=== PATIENT | male | born 1985 | race Caucasian/White ===

== ENCOUNTER 2023-07-24 20:30 | Emergency (ER) | payer OTHER, SELFPAY ==
[2023-07-24 20:39] VITALS: BP 168/106
[2023-07-24] MEDS: ADACEL 0.5 ML IM (22:28)
[2023-07-24] MEDS: VIBRAMYCIN 100 MG PO (22:29)
--- NOTE | 2023-07-24 23:45 | ED.MUSCINJ ---
HPI-Injury
General
Chief Complaint: Musculo-Skeletal Complaint
Source: patient
Exam Limitations: none
Time Seen by Provider: 07/24/23 21:46
Nursing documentation reviewed up to this point in time: agreed with
Travel History
Have you had any contact with someone who has COVID-19?: No
Do you have any symptoms of coronavirus? Fever > 100 degrees, chills, cough, shortness of breath, sore throat, loss of taste or smell, muscle aches, or headache?: No
History of Present Illness-Injury
Is this injury a work related problem?: No
Is pt an associate of [facility]?: No
Initial Injury comments:
Patient states he was attempting to sit in stands to watch ej sporting event. States his shoulder hit a fire extinguisher that was on wall. Extinguisher fell onto his right hand. Sustained a crush injury to his right third finger. Incident
occurred tonight Brought self to ED for eval.
Past History
Past History
ED Past Medical History: None
ED Past Surgical History: None
Review of Systems
Review of Systems
Allergies reviewed?: Yes
All Other Systems: ROS reviewed and negative except as documented in HPI and ROS
Constitutional: Reports no symptoms
Musculoskeletal: Reports joint pain (Pain to right third finger)
Skin: Reports other (Laceration to right dorsal distal 3rd finger)
Neurological: Reports no symptoms
Psychiatric: Reports no symptoms
Musculoskeletal Injury Exam
Musculoskeletal Injury Exam
Right Third Finger:
Pain with Movement?: Moderate
Tender to palpation?: Moderate
Soft tissue swelling?: Moderate
External deformity and angulation?: None
Joint effusion?: None
Contusion?: Moderate
Hematoma-local bleeding into tissue?: Moderate
Strain- Sprain- Tear (Connective tissue injury)?: None
Crepitus with movement?: No
Joint instability?: No
Malalignment/deformity?: No
Range of motion: Full
Distal skin color and temperature: normal-warm & good color
Capillary Refill: normal
Normal distal neurovascular exam?: Yes
Peripheral Pulses: radial (right): 3+
Skin Exam
Laceration
Right Distal Dorsal Third Finger:
Length in cm: 1.5
Orientation: diagonal
Type of Laceration: simple
Any active bleeding?: no active bleeding
Distal skin color and temperature: normal-warm & good color
Normal distal neurovascular exam: Yes
Range of motion: full
Phy Exam
General Physical Exam
General Presentation: well appearing and no apparent distress
General age: appears stated age
General Skin: warm and dry
General Habitus: normal
General Mental: alert
General Hydration: appears well hydrated
Musculoskeletal Exam
Musculoskeletal Exam: full ROM and neuro vasc intact
Skin Exam
Skin Exam: normal color, warm/dry and no rash
Psychiatric Exam
Psychiatric Exam: normal mood/affect
Injury Course
Orders/Labs/Results
Orders:
Orders
07/24/23 21:51
Finger(s)/Thumb 2 View Rt [CR Finger(s)/thumb Min 2 Vw Rt] Urgent
Comment:
Reason For Exam: trauma
07/24/23 22:20
Tetanus/Diphth/Acelpertussis [Adacel] 0.5 ml IM .ONCE ONE
07/24/23 22:21
Doxycycline [Vibramycin] 100 mg PO NOW STA
Procedures
Laceration Closure
Right Distal Dorsal Third Finger:
Description of Wound Edges: sharp
Preparation: cleaned with saline and cleaned with Betadine
Anesthesia: 1% Lidocaine and Digital-Regional
Revision/Debridement: routine- no revision
Wound exploration: explored to base- no FB
Type of Closure: single layer closure
Skin Closure Material: 5-0 prolene (4) and 5-0 chromic gut (4)
*Radiology
Radiology exam reviewed: radiology read reviewed
*Pulse Oximetry
Patient hypoxic: no
*Critical Care Note
Total Time (30-74mins, 75-104mins- exclusive of procedures): Not Applicable
ED Attending Note
-
Portions of this chart may have been created with voice recognition software.� Occasional wrong word or��sound alike� substitutions may have occurred due to the inherent limitations of voice recognition software.
Discharge Plan
Departure
Patient Disposition: Home (Routine Discharge)
Date of Disposition: 07/24/23
Time of Disposition: 22:37
Patient with high blood pressure during this ER visit?: No
Condition: Good
Covid-19: Not Applicable
Discharge Problem:
Finger fracture, Finger laceration
Instructions: Laceration Repair With Glue (DC), Laceration Repair With Stitches (DC), Finger Fracture (DC), Ibuprofen, Using Cold for Pain
Prescriptions:
New
doxycycline hyclate 100 mg capsule
100 mg PO BID Qty: 14 0RF
Referrals:
Julio Marie, [Family Provider] - Follow up in 1 week (Sutures can be removed in 7-10 days)
Interventions
Interventions:
*Risk Screen - Suicide Last Done: 07/24/23 20:39
*General Assessment Last Done: 07/24/23 20:39
*Neglect/Abuse Screening Last Done: 07/24/23 20:39
ED- Fall Risk Assessment Last Done: 07/24/23 20:39
*ED COVID-19 Vaccine History Last Done: 07/24/23 20:39
*Nursing Disposition Last Done: 07/24/23 22:02
ED-Musculoskeletal Assessment Last Done: 07/24/23 22:02
Discharge Date and Time
Discharge Date/Time: 07/24/23 22:52
== END 2023-07-24 22:52 | disposition home or self-care (01) ==
LOC: EMR 20:30
PROVIDERS: EMERGENCY PHYSICIAN Emergency Medicine; FAMILY PHYSICIAN Family Medicine
DX: S62.632B Displaced fracture of distal phalanx of right middle finger, initial encounter for open fracture (principal); W23.0XXA Caught, crushed, jammed, or pinched between moving objects, initial encounter; Z23 Encounter for immunization
CPT/HCPCS: 99284; 12041; 90471; 73140; 90715

== ENCOUNTER 2024-11-25 23:02 | Emergency (ER) | payer OTHER, SELFPAY ==
[2024-11-25 23:15] VITALS: BP 154/92
[2024-11-25 23:38] VITALS: BP 158/88
[2024-11-25 23:43] VITALS: BMI 31.3
[2024-11-25 23:55] LABS: % Basophils 0.9 % (0-2); % Eosinophils 2.9 % (0-6); % Immature Granulocytes 0.6 % (0-0.5); % Lymphocytes 28.2 % (20.5-51.1); % Monocytes 8.7 % (1.7-9.3); % Neutrophils 58.7 % (42.2-75.2); Absolute Basophils 0.1 10^3/uL (0-0.2); Absolute Eosinophils 0.2 10^3/uL (0-0.7); Absolute Lymphocytes 1.9 10^3/uL (1.2-3.4); Absolute Monocytes 0.6 10^3/uL (0.1-0.6); Hematocrit 46.3 % (39.0-52.0); Hemoglobin 16.1 g/dL (13.0-18.0); Mean Corp Hgb Conc. 34.8 g/dL (33.0-37.0); Mean Corpuscular Hgb 29.3 pg (27.0-31.0); Mean Corpuscular Volume 84.2 fL (80.0-94.0); Mean Platelet Volume 9.6 fL (7.4-10.4); Nucleated Red Blood Cells % 0 % (-); Platelet Count 205 10^3/uL (130-400); Red Cell Dist. Width 13.1 % (11.5-14.5); White Blood Cell Count 6.8 10^3/uL (4.8-10.8)
[2024-11-26] VITALS: BP 147/78
[2024-11-26 00:08] LABS: ALT (SGPT) 19 U/L (0-50); AST (SGOT) 28 U/L (17-59); Alkaline Phosphatase 61 U/L (38-126); Blood Urea Nitrogen 17 mg/dl (9-20); Calcium 9.4 mg/dl (8.4-10.2); Carbon Dioxide 23 mmol/L (22-30); Chloride 109 mmol/L (98-107); Estimated Creatinine Clearance 75 ml/min; Glucose 107 mg/dl (70-99); Sodium 139 mmol/L (135-145); Total Bilirubin 0.5 mg/dl (0.2-1.3); Total Protein 6.6 g/dl (6.3-8.2); eGFR 59.98
[2024-11-26 00:20] LABS: NT-proBNP < 20.0 pg/ml; Troponin I < 0.012 ng/ml
--- NOTE | 2024-11-26 00:57 | ED.GENMED ---
History of Present Illness
General
Chief Complaint: Chest Pain
Source: patient
Exam Limitations: none
Time Seen by Provider: 11/25/24 23:40
Nursing documentation reviewed up to this point in time: agreed with
History of Present Illness
History of Present Illness:
Patient is a 39-year-old male who presents to the ER for evaluation of chest pain. Patient reports intermittently for the past 2 days he has had' twinges of sharp almost electrical sensations to his left chest.' Today however what prompted him to
come to the ER is he had an episode of left jaw soreness/discomfort when he was chewing. He denies any actual pain. He denies any pain to the jaw pain of the chest. He is concerned because his father had heart attack and at age 69.
He is very active and exercises. He exercises with no chest pain or shortness of breath. He denies any recent injury cough fever chills. He denies any associated shortness of breath with his current symptoms. He does workout daily and worked out
heavily today with out any symptoms. denies any injury.
No pain with deep breath.
Past History
Past History
ED Past Medical History: None
ED Past Surgical History: None
Review of Systems
Review of Systems
Allergies reviewed?: Yes
All Other Systems: ROS reviewed and negative except as documented in HPI and ROS
Constitutional: Reports no symptoms
Respiratory: Reports no symptoms; Denies trouble breathing
Cardiac: Reports chest pain
ABD/GI: Reports no symptoms
: Reports no symptoms
Musculoskeletal: Reports no symptoms
Skin: Reports no symptoms
Neurological: Reports no symptoms
Psychiatric: Reports no symptoms
Phy Exam
General Physical Exam
General Presentation: no apparent distress
General age: appears stated age
General Skin: warm and dry
General Habitus: normal
General Mental: alert
General Hydration: appears well hydrated
Eye Exam
Eye Exam: PERRL and EOMI
Eye Exam General: PERRL: bilateral and EOM intact: bilateral
Pupil Exam: Bilateral: round and reactive
Cardiovascular Exam
Cardiovascular Exam: regular rate/rhythm, no murmur and normal peripheral pulses
Pulmonary Exam
Pulmonary Exam: lungs clear, no respiratory distress, chest non tender and other (no rash,)
Neurological Exam
Neurological Exam: alert and oriented x3
Musculoskeletal Exam
Musculoskeletal Exam: full ROM
Skin Exam
Skin Exam: normal color and warm/dry
Psychiatric Exam
Psychiatric Exam: normal mood/affect
Scores
Heart Score for Chest Pain Patients
STEMI patient?: Not applicable
Course
Orders/Labs/Results
Orders:
Orders
11/25/24 23:11
Electrocardiogram (*1) Urgent
Reason for Study: Other
Other Reason for Exam: Respiratory Distress
Cardiac Monitoring- Treatment ONCE
EKG- Treatment ONCE
IV Insert/Care/Rem.- Treatment PRN
O2 Therapy [RESP] Urgent
Titrate/Wean O2 to maintain O2 sat greater than (%): 93
Special Instructions: TO MAINTAIN CONTINUOUS O2 SATS >/= 93%
Pulse Ox/cont/shift [RESP] Urgent
Quantity: 1
Special Instructions: continuous pulse ox
11/25/24 23:48
Complete Blood Count/With Diff Urgent
Comprehensive Metabolic Panel Urgent
NT-proBNP Urgent
Troponin I Urgent
11/26/24 00:00
CR Chest - 2 Views Urgent
Reason For Exam: respiratory distress
11/26/24 01:07
EKG- Treatment ONCE
11/26/24 02:26
Troponin I Urgent
11/26/24 02:30
Electrocardiogram (*1) Stat
Reason for Study: Other
Other Reason for Exam: chest pain
Abnormal Lab Results
11/25/24
23:48
Immature Gran % 0.6 H %
(0-0.5)
Chloride 109 H mmol/L
(98-107)
Creatinine 1.5 H mg/dL
(0.7-1.3)
Glucose 107 H mg/dl
(70-99)
11/25/24 23:48
11/25/24 23:48
Vital Signs
Initial and Last Documented VS:
Initial Vital Signs
Temp Pulse BP Pulse Ox
98.0 F 95 154/92 98
11/25/24 23:15 11/25/24 23:15 11/25/24 23:15 11/25/24 23:15
Last Documented Vital Signs
Temp Pulse Resp BP Pulse Ox
98.0 F 90 18 147/78 98
11/25/24 23:15 11/26/24 00:00 11/26/24 00:00 11/26/24 00:00 11/26/24 00:00
MDM/Problems Addressed
Differential Diagnosis Includes:
Not limited to muscular pain, less likely ACS.
MDM/Problems Addressed:
As documented patient is a 39-year-old male who has had intermittent chest pain for the past couple days and had some discomfort chewing today. His father had from cardiovascular disease which is what prompted patient to come to the ER.
He presents awake alert no acute distress he exercises and lift weights daily and has no associated chest pain or shortness of breath with exercise. He presents awake alert no acute distress no obvious injury he is nontachycardic not hypoxic.
Patient was monitored here and remained asymptomatic with 2 negative cardiac troponins. Because of patient's family history I did however suggest that he follow-up with cardiology and placed on the hotline and to hold off on exercise or exertion
until seen by cardiology. He is well-appearing. Stable for discharge home
*Radiology
Radiology exam reviewed: radiology read reviewed
*Pulse Oximetry
Patient hypoxic: no
*EKG
Interpreted by ED Provider?: Yes
Heart Rate: 85
Rate: normal
Rhythm: sinus
Ischemia: no ischemia
*Critical Care Note
Total Time (30-74mins, 75-104mins- exclusive of procedures): Not Applicable
ED Attending Note
-
Portions of this chart may have been created with voice recognition software.� Occasional wrong word or��sound alike� substitutions may have occurred due to the inherent limitations of voice recognition software.
Discharge Plan
Departure
Patient Disposition: Home (Routine Discharge)
Date of Disposition: 11/26/24
Time of Disposition: 03:11
Patient with high blood pressure during this ER visit?: Yes
Condition: Fair
Covid-19: Not Applicable
Discharge Problem:
Chest pain
Instructions: Chest Pain CBC Follow Up, BLOOD PRESSURE
Prescriptions:
No Action
doxycycline hyclate 100 mg capsule
100 mg PO BID Qty: 14 0RF
Referrals:
Stone Doty MD [Active, Cardiology]
Julio Marie DO [Family Provider, Family Practice]
Activity Restrictions/Additional Instructions:
As discussed follow-up with cardiology. You were placed on the cardiology hotline which means you should receive a phone call in the next 1 to 2 days however if you do not please call the cardiology office to schedule an appointment as soon as
possible. No exercise or exertional activities until cleared by cardiology. Return if any worsening of symptoms.
Interventions
Interventions:
*Risk Screen - Suicide Last Done: 11/25/24 23:31
*General Assessment Last Done: 11/25/24 23:31
*Neglect/Abuse Screening Last Done: 11/25/24 23:31
*ED- Fall Risk Assessment Last Done: 11/25/24 23:31
*ED COVID-19 Vaccine History Last Done: 11/25/24 23:31
*Nursing Disposition Last Done: 11/26/24 03:15
ED- Cardiac Assessment Last Done: 11/25/24 23:53
Discharge Date and Time
Discharge Date/Time: 11/26/24 03:18
Print Language: NEPALI
[2024-11-26 03:10] LABS: Troponin I < 0.012 ng/ml
== END 2024-11-26 03:18 | disposition home or self-care (01) ==
LOC: EMR 23:02
PROVIDERS: Emergency Medicine; Nurse Practitioner; EMERGENCY PHYSICIAN Emergency Medicine; FAMILY PHYSICIAN Family Medicine
DX: R07.9 Chest pain, unspecified (principal)
CPT/HCPCS: 99285; 71046; 80053; 83880; 84484; 85025; 93005